=== PATIENT | female | born 1960 ===

== ENCOUNTER 2020-04-25 08:35 | Day surgery (SDC) | payer OTHER | END 2020-04-25 13:15 | disposition home or self-care (01) | LOC: AMB-ENDOS 08:35 | PROVIDERS: ATTEND Surgery | DX: K62.89 Other specified diseases of anus and rectum (principal); Z12.11 Encounter for screening for malignant neoplasm of colon; Z20.828 Contact with and (suspected) exposure to other viral communicable diseases; K64.8 Other hemorrhoids ==